=== PATIENT | female | born 1995 | race Caucasian/White ===

== ENCOUNTER 2022-04-05 08:11 | Emergency (ER) | payer BC, SELFPAY ==
[2022-04-05 08:20] VITALS: BP 137/97; PULSE 94; RESP 20; TEMP 37.3; O2SAT 98; BMI 30.9
--- NOTE | 2022-04-05 08:22 | EXP.UTC ---
Discharge Plan Disposition Patient Disposition: Home, Self-Care Condition: Good Prescriptions Prescriptions: New amoxicillin [amoxicillin] 500 mg tablet 500 mg PO TID 10 Days Qty: 30 0RF methylprednisolone 4 mg Tablets,Dose Pack 4 mg PO DIRECTED Qty: 21 0RF [id number]-[id number]-[id number] [Bromfed DM] 2-30-10 mg/5 mL Syrup 5 ml PO Q6H PRN (Reason: Cough) Qty: 240 0RF No Action norgestimate-ethinyl estradiol [Estarylla] 0.25-35 mg-mcg tablet 1 tab PO DAILY levothyroxine [Synthroid] 100 mcg tablet 100 mcg PO DAILY Label Comments: TAKE 1 TABLET BY MOUTH EVERY DAY fluoxetine 60 mg Tablet 60 mg PO DAILY Referrals Follow up/Referrals: Espinoza Parker JR, MD [Physician] - See instructions Олег Mcgraw [Primary Care Provider] - See instructions Activity Restrictions/Add. Instructions Additional Instructions/Restrictions: Rest the extremity, apply ice for 15 minutes as tolerated three or four times per day, Elevate the extremity as tolerated while you are resting. Take ibuprofen for pain. Follow up with Dr. Parker (orthopedics) if you continue to have issues with your hand. I put in a referral but you need to call his office and schedule an appointment. Follow up with your regular doctor. GO TO THE ER FOR ANY WORSENING SYMPTOMS Drink plenty of fluids. Take the medications as directed. Follow up with your regular doctor. GO TO THE ER FOR ANY WORSENING SYMPTOMS Clinical Impressions Clinical Impression: Pharyngitis, Sinusitis, Contusion of hand, right Discharge ED Provider: Romaine Schreiber [facility] General Stated complaint: Sore throat cough RT hand pain AO@home 04/04 Time Seen by Provider: 04/05/22 08:22 History of Present Illness Provider Complaint: She states that for the past 2 weeks she has had sinus congestion, sore throat, runny nose and a nonproductive cough. Also, yesterday the wind blew her screen door closed and it caught her right hand in it. She has bruising and tenderness of the top of her right hand. Moving the hand makes her pain worse. Related Data Home Medications Medication Instructions Recorded Confirmed fluoxetine 60 mg tablet 60 mg PO DAILY Anxiety 02/24/23 02/24/23 levothyroxine 100 mcg tablet 100 mcg PO DAILY thyroid 04/05/22 04/05/22 (Synthroid) norgestimate 0.25 mg-ethinyl 1 tab PO DAILY control 04/05/22 04/05/22 estradiol 35 mcg tablet (Estarylla) Previous Rx's Medication Instructions Recorded amoxicillin 500 mg tablet 500 mg PO TID 10 days #30 tabs 04/05/22 brblwgwgcztmssh-dcacgdhofmpqivk-[id number] 5 ml PO Q6H PRN Cough #240 mL 04/05/22 2 mg-30 mg-10 mg/5 mL oral syrup (Bromfed DM) methylprednisolone 4 mg tablets in 4 mg PO DIRECTED #21 tabs 04/05/22 a dose pack Allergies Allergy/AdvReac Type Severity Reaction Status Date / Time No Known Allergies Allergy Verified 04/05/22 08:27 [facility] Disclaimer: The information contained in this section may have been updated after the patient was seen, as this information can be updated by other users. Social History Smoking Status: Never smoker alcohol intake: never current occupational status: employed Travel in the last 8 weeks: None ROS Obtained: Yes All systems reviewed & no additional complaints except as documented Constitutional Constitutional: Reports chills and Reports fever(s) Eyes Eyes: Denies eye discharge ENT Ears, Nose, Mouth, and Throat: Reports as per HPI Cardiovascular Cardiovascular: Denies chest pain Respiratory Respiratory: Denies chest congestion and Reports cough Gastrointestinal Gastrointestingal: Reports nausea; Denies abdominal pain, constipation, cramping, diarrhea or vomiting Musculoskeletal Musculoskeletal: Reports as per HPI Integumentary/Breasts Skin/Breast: Denies rash Neurologic Neurologic: Denies paresthesias Physical Exam General
--- NOTE | 2022-04-05 08:27 | XR_ITS ---
FINAL REPORT CLINICAL HISTORY: Right wrist pain without trauma FINDINGS: RIGHT WRIST Three views demonstrate no acute fracture or dislocation. The visualized joint spaces are normally aligned. The soft tissues are unremarkable. IMPRESSION: No acute bony abnormality. Reviewed, Interpreted and Dictated by Akira Christie III, MD Transcribed by Isi Noyola Authenticated and [facility]
--- NOTE | 2022-04-05 08:27 | XR_ITS ---
FINAL REPORT CLINICAL HISTORY: Right hand pain without trauma FINDINGS: RIGHT HAND Three views demonstrate no acute fracture or dislocation. The visualized joint spaces are normally aligned. The soft tissues are unremarkable. IMPRESSION: No acute bony abnormality. Reviewed, Interpreted and Dictated by Akira Christie III, MD Transcribed by Isi Noyola Authenticated and [facility]
[2022-04-05 08:36] LABS: UTC Strep Screen (Rapid) Negative (Negative)
[2022-04-05 09:15] VITALS: BP 137/97; PULSE 94; RESP 20; TEMP 37.3; O2SAT 98
== END 2022-04-05 09:14 | disposition home or self-care (01) ==
PROVIDERS: Emergency Provider Nurse Practitioner Family; PCP Internal Medicine
DX: J32.9 Chronic sinusitis, unspecified (principal); S60.221A Contusion of right hand, initial encounter; J02.9 Acute pharyngitis, unspecified; W23.0XXA Caught, crushed, jammed, or pinched between moving objects, initial encounter
CPT/HCPCS: 73110; 73130; 87880; 99213; 99214; G0463

== ENCOUNTER 2023-10-14 09:51 | Outpatient (CLI) | payer BC, SELFPAY ==
--- NOTE | 2023-10-14 09:54 | US_ITS ---
FINAL REPORT CLINICAL HISTORY: RUQ PAIN FINDINGS: RIGHT UPPER QUADRANT ULTRASOUND Sonographic images of the right upper quadrant were obtained. The pancreas is partially obscured. There is fatty infiltration of the liver. Gallstones are identified. There is borderline gallbladder wall thickening measuring 3 mm. The common duct measures 3 mm. Limited images of the right kidney are normal. IMPRESSION: Gallstones with borderline gallbladder wall thickening, cholecystitis is not excluded. Fatty liver. Reviewed, Interpreted and Dictated by Akira Christie III, MD Transcribed by Gauri Villagomez Authenticated and [facility]
== END 2023-10-14 23:59 | disposition home or self-care (01) ==
LOC: RAD 09:52
PROVIDERS: PCP Internal Medicine; Visit Provider Internal Medicine
DX: R10.11 Right upper quadrant pain (principal)
CPT/HCPCS: 76705